=== PATIENT | female | born 1950 | race Caucasian/White ===

== ENCOUNTER 2021-01-23 12:51 | Emergency (ER) | payer MEDICARE, SELFPAY ==
--- NOTE | ~2021-01-23 | XR_ITS ---
EXAMINATION: XR WRIST, RIGHT CLINICAL INFORMATION: Trauma, pain COMPARISON: None TECHNIQUE: Right wrist is imaged in 4 views. FINDINGS: There is an impacted predominantly transverse fracture distal radius with dorsal angulation distal fragment. There may be comminution of the distal fragment with hairline longitudinal fracture extending to the articular surface. There is slight positive ulnar variance due to the impaction. No dislocation or destructive process. No other fractures demonstrated. XR/XR wrist RT min 3V IMPRESSION: Impacted angulated fracture distal right radius.
--- NOTE | ~2021-01-23 | XR_ITS ---
EXAMINATION: XR WRIST, RIGHT CLINICAL INFORMATION: Status post reduction. COMPARISON: Radiographs of the right wrist done on 01/23/2021. TECHNIQUE: Three views of the right wrist. FINDINGS: Evaluation is technically limited due to presence of overlying cast, new since prior study. Previously documented distal fracture fragment is normal slightly displaced along the ventral aspect as compared to prior study. No other significant change. No new abnormalities. XR/XR wrist RT min 3V IMPRESSION: The distal fracture fragment involving the subarticular aspect of the right radius shows slight ventral displacement on the lateral projection. No other significant change.
[2021-01-23 13:16] VITALS: BP 150/75; PULSE 75; RESP 18; TEMP 36.7; O2SAT 97; BMI 29.2
--- NOTE | 2021-01-23 14:48 | ED.EXTPRO ---
HPI - Extremity Problem General Chief complaint: Extremity Injury, Upper <Abran Guzman - Last Filed: 01/23/21 16:48> Stated complaint: rt wrist injury <Abran Guzman - Last Filed: 01/23/21 16:48> Time Seen by Provider: 01/23/21 14:48 <Abran Casper Last Filed: 01/23/21 16:48> Source: patient and family <Abran Casper Last Filed: 01/23/21 16:48> Limitations: no limitations <Abran Guzman - Last Filed: 01/23/21 16:48> History of Present Illness HPI Narrative: Patient presents to the ER complaining of right wrist pain after a small fall and jamming her wrist. Patient states she was standing on the couch trying to hang some thin did not hold on fell down injuring her right wrist. Positive swelling and pain since. Pain increases with palpation or range of motion. Pain is 6/10. Patient has a history of rotator cuff repair of the right shoulder past by 1 orthopedics. Patient also has a history of hypertension asthma seasonal allergies and also reflux. Patient had a mass removed under lung many years prior also. <Abran Guzman Last Filed: 01/23/21 16:48> Related Data Home medications: Previous Rx's Medication Instructions Recorded tramadol 50 mg tablet 50 mg PO TID PRN #20 tab 01/23/21 <Abran Guzman - Last Filed: 01/23/21 16:48> Allergies/Adverse reactions: Allergies Allergy/AdvReac Type Severity Reaction Status Date / Time No Known Allergies Allergy Verified 01/23/21 13:16 <Abran Guzman - Last Filed: 01/23/21 16:48> Review of Systems Constitutional: Constitutional: Denies chills, Denies fever(s) and Denies headache(s) <Abran Guzman - Last Filed: 01/23/21 16:48> ENT: Denies headache(s) and Denies sore throat <Abran Guzman Last Filed: 01/23/21 16:48> Cardiovascular: Cardiovascular: Denies chest pain and Denies dyspnea <Abran Guzman Last Filed: 01/23/21 16:48> Respiratory: Respiratory: Denies dyspnea <Abran Guzman Last Filed: 01/23/21 16:48> Gastrointestinal: Gastrointestinal: Denies nausea and Denies vomiting <Abran Guzman - Last Filed: 01/23/21 16:48> Musculoskeletal: Comments: Right wrist pain swelling deformities <Abran Guzman - Last Filed: 01/23/21 16:48> Neurologic: Denies headache(s) <Abran Thomas - Last Filed: 01/23/21 16:48> [facility] Past Medical History Medical History: Medical History Asthma Lung cancer <Abran Guzman - Last Filed: 01/23/21 16:48> Surgical History: Surgical History H/O rotator cuff surgery S/P ear surgery S/P lobectomy of lung <Abran Guzman - Last Filed: 01/23/21 16:48> Social History Social History: Social History Advance Directives: No Advance Directives Information Provided: No <Abran Guzman - Last Filed: 01/23/21 16:48> Physical Exam Vital Signs: Vital Signs: Last Vital Signs Temp 98.0 F 01/23/21 13:16 Pulse 75 01/23/21 13:16 Resp 18 01/23/21 13:16 BP 150/75 H 01/23/21 13:16 Pulse Ox 97 01/23/21 13:16 Body Mass Index 29.2 vital signs have been reviewed as normal and appeared to be correct. Blood pressure normal. Heart rate normal. Respiration rate normal. Temperature normal. Oxygen saturation normal. <Abrna Guzman - Last Filed: 01/23/21 16:48> Vital Signs: Last Vital Signs Temp 98.0 F 01/23/21 13:16 Pulse 75 01/23/21 13:16 Resp 18 01/23/21 13:16 BP 150/75 H 01/23/21 13:16 Pulse Ox 97 01/23/21 13:16 Body Mass Index 29.2 <Gerardo Herndon MD - Last Filed: 01/23/21 15:58> Appearance: Alert. Oriented X3. No acute distress. Head: Normal external exam. Normocephalic. Atraumatic. Eyes: PERRLA. EOMI. Conjunctiva and sclera normal. Eyelids normal. ENT: Pharynx normal. Uvula midline. Moist mucous membranes. Neck: Soft full range of motion, no JVD CVS: Heart regular rate and rhythm no murmurs and rubs Respiratory: Breath sounds are clear to auscultation bilaterally. No accessory muscle use noted. Skin: Right wrist positive swelling slight ecchymosis noted. Extremities: Positive tenderness distal radius right wrist. Positive deformity proximal and distal pulses are intact positive capillary refill decreased range of motion secondary to pain. Neuro: Oriented X 3. No motor deficit. No sensory deficit. Reflexes normal. <Abran Guzman - Lan Filed: 01/23/21 16:48> Course Course Course Narrative: Right wrist fracture Right wrist open dislocation Ulnar fracture Contusion Right wrist sprain X-ray show signs of a contacted the distal radial fracture will consult Orthopedics if there is need for any reduction at this time in the ER. Plan to splint and have follow-up with Orthopedics 3:59 p.m. Hematoma block performed by Dr. Herndon see written notes for details. Reduction done by Dr. Herndon post reduction film pending 4:40 p.m. plan to discharge at this time patient is splinted in a sugar-tong splint see written notes for details slight ventral displacement after reduction Dr. Herndon aware <Abran Montenegro Filed: 01/23/21 16:48> MDM - Extremity (Nontraumatic) Imaging Data wrist: Radiologist's impression: [place] [address] XRay Report Signed Patient: Ronit Yang MR#: [id number] : 1950 Acct:[id number] Age/Sex: 70 / F ADM Date: 01/23/21 Loc: .ED Attending Dr: Ordering Physician: Generic ED Physician Date of Service: 01/23/21 Procedure(s): XR wrist RT min 3V Accession Number(s): [id number] cc: Generic ED Physician~ EXAMINATION: XR WRIST, RIGHT CLINICAL INFORMATION: Trauma, pain? COMPARISON: None? TECHNIQUE: Right wrist is imaged in 4 views. FINDINGS: There is an impacted predominantly transverse fracture distal radius with dorsal angulation distal fragment. There may be comminution of the distal fragment with hairline longitudinal fracture extending to the articular surface. There is slight positive ulnar variance due to the impaction. No dislocation or destructive process. No other fractures demonstrated. ? XR/XR wrist RT min 3V IMPRESSION: Impacted angulated fracture distal right radius. Dictated By: Gerardo Oshea MD Signed By: <Electronically signed by Gerardo Oshea MD in [place]> 01/23/21 1341 DD/ 1332 TD/TT:? [employer]: FLIP <Abran Guzman - Last Filed: 01/23/21 16:48> wrist post reduction : Radiologist's impression: [address] [place] [address] XRay Report Signed Patient: Ronit Yang MR#: [id number] : 1950 Acct:[id number] Age/Sex: 70 / F ADM Date: 01/23/21 Loc: .ED Attending Dr: Ordering Physician: Abran Guzman Date of Service: 01/23/21 Procedure(s): XR wrist RT min 3V Accession Number(s): [id number] cc: Abran Guzman ~ EXAMINATION: XR WRIST, RIGHT CLINICAL INFORMATION: Status post reduction.? COMPARISON: Radiographs of the right wrist done on 01/23/2021.? TECHNIQUE: Three views of the right wrist. FINDINGS: Evaluation is technically limited due to presence of overlying cast, new since prior study. Previously documented distal fracture fragment is normal slightly displaced along the ventral aspect as compared to prior study. No other significant change. No new abnormalities. XR/XR wrist RT min 3V IMPRESSION: The distal fracture fragment involving the subarticular aspect of the right radius shows slight ventral displacement on the lateral projection. No other significant change. Dictated By: RICHIE BOX MD Signed By: <Electronically signed by RICHIE BOX MD in [place]> 01/23/21 1635 DD/ 1555 TD/TT:? [employer]: NIA <Abran Guzman - Last Filed: 01/23/21 16:48> Procedures Procedure Narrative Procedure Narrative: Patient prepped with betadine, lidocaine !% used for hematoma block. Patient reduced, splint applied. Neuro vascularly intact, good cap refill <Gerardo Herndon MD - Last Filed: 01/23/21 15:58> Discharge Plan Discharge Clinical Impression: Closed fracture of right distal radius Qualifiers: Encounter type: initial encounter Fracture morphology: other intra-articular Qualified Code(s): S52.571A - Other intraarticular fracture of lower end of right radius, initial encounter for closed fracture <Abran Guzman - Last Filed: 01/23/21 16:48> Patient Disposition: Home, Self-Care <Abran Guzman - Last Filed: 01/23/21 16:48> Instructions: Wrist Fracture in Adults (ED) <Abran Guzman - Last Filed: 01/23/21 16:48> Additional Instructions: Stains splint keep elevated apply ice Follow-up with referred orthopedics and/or [facility] <Abran Guzman - Last Filed: 01/23/21 16:48> Prescriptions: New tramadol 50 mg tablet 50 mg PO TID PRN (Reason: severe pain (scale score 7-10)) Qty: 20 RF: 0 <Abran Guzman - Last Filed: 01/23/21 16:48> Referrals: Jonna Tamez MD [Physician] - 2 days (Right distal radius fracture) <Abran Guzman - Last Filed: 01/23/21 16:48>
[2021-01-23] MEDS: Lidocaine HCl 1 % 20 ML VIAL SUBCUT (16:36)
== END 2021-01-23 17:20 | disposition home or self-care (01) ==
PROVIDERS: Emergency Provider Emergency Medicine; PCP Internal Medicine
DX: S52.571A Other intraarticular fracture of lower end of right radius, initial encounter for closed fracture (principal); I10 Essential (primary) hypertension; J45.909 Unspecified asthma, uncomplicated; W08.XXXA Fall from other furniture, initial encounter; Y93.9 Activity, unspecified; Y92.9 Unspecified place or not applicable; Y99.9 Unspecified external cause status
CPT/HCPCS: 25605; 73110; 99283